=== PATIENT | female | born 1995 | race Caucasian/White ===

== ENCOUNTER 2025-10-13 21:27 | Emergency (ER) | payer OTHER, SELFPAY ==
[2025-10-13 21:29] VITALS: BP 141/102
[2025-10-13 21:55] VITALS: BP 120/97
[2025-10-13 22:01] VITALS: BMI 27.6
--- NOTE | 2025-10-13 22:01 | ED.GENMED ---
History of Present Illness
<Meir Broderick, DO - Last Filed: 10/13/25 23:36>
General
Chief Complaint: Problems
Source: patient and family
Exam Limitations: none
Time Seen by Provider: 10/13/25 21:47
Nursing documentation reviewed up to this point in time: agreed with
History of Present Illness
History of Present Illness:
Note:
CHIEF COMPLAINT(S)
Palpitations and feeling 'full' or bloated.
HISTORY OF PRESENT ILLNESS
The patient is a 30-year-old female who is five months . She presented with complaints of palpitations and feeling 'really full' after having dinner. The patient reported that her heart felt like it was racing, describing a feeling vernon to
'shaking and restless but with air.� She measured her blood pressure at home, noting that both her blood pressure and heart rate were elevated. Despite feeling some shortness of breath, she clarified she is not gasping for air and can speak
comfortably. She denied experiencing any chest pain but mentioned feeling some gastrointestinal fullness and bloating, accompanied by loose stools.
The patient was at rest, lying on the couch, when these symptoms began. She associates the onset with having just finished her evening meal. The patient has a history of in vitro fertilization (IVF) and is being followed by both Dr. Salas group at
[facility] and maternal- medicine due to this .
She reported feeling movements earlier in the day and mentioned some swelling in the legs but did not describe any pain. She had a brief episode of dysuria on Tuesday, which resolved quickly without any recurrence.
CHRONIC MEDICAL CONDITIONS SIGNIFICANTLY AFFECTING CARE
The patient is currently on aspirin prophylactically to reduce the risk of preeclampsia.
Physical Exam
General: no apparent distress, not acutely ill
Neck: supple. no meningeal signs. normal posterior pharynx
Heart: s1/s2 tachycardia, no murmur. equal radial
pulses.
HEENT: Pupils equal round reactive to light, EOMI
Lungs: no acute respiratory distress. clear bilaterally
Abdomen: normal bowel sounds. not tender. no CVAT, gravid uterus
Neuro: alert and oriented. no focal neurological deficits cranial nerves II through XII intact
Skin: no rash
Psychiatric: well kept. interactive and cooperative
Extremities: no edema. no calf tenderness. negative homans. good distal pulses
PLAN
1. Perform a screening test for blood clots, particularly D-dimer, to rule out thromboembolic events.
2. Conduct liver function tests and pancreatic assessments.
3. Administer intravenous fluids.
4. Monitor the patients heart rate and conduct continuous observation, given her concern about potential changes on the electrocardiogram noted during the visit.
DIFFERENTIAL DIAGNOSIS
The Differential Diagnosis includes, in no particular order and is not limited to:
1. Tachycardia related to .
2. Gastroesophageal reflux disease (GERD).
3. Anxiety or stress-related palpitations.
4. Hyperthyroidism.
5. Cardiac arrhythmia.
6. Anemia of .
7. Gestational hypertension.
8. Pre-eclampsia.
9. Pulmonary embolism.
10. Caffeine or dietary-induced palpitations.
CARE-UPDATE
10/13/25 - 23:34
D-Dimer levels are normal for second trimester. Initial troponin negative; plan to repeat test. If repeat troponin is negative and patient remains asymptomatic, discharge is planned. Consulted HOLDEN Macario on-call, confirming no need for
admission; advised follow-up with maternal medicine.
Phy Exam
<Meir Broderick, DO - Last Filed: 10/13/25 23:36>
Physical Exam
Physical Exam:
.
Course
<Meir Broderick, DO - Last Filed: 10/13/25 23:36>
Orders/Labs/Results
Orders:
Orders
10/13/25 21:39
EKG [Electrocardiogram (*1)] Urgent
Reason for Study: Shortness of Breath
EKG- Treatment ONCE
10/13/25 21:57
IV Insert/Care/Rem.- Treatment PRN
Pulse Ox/cont/shift [RESP] Stat
Quantity: 1
10/13/25 21:58
Cardiac Monitoring- Treatment ONCE
Lactated Ringers [Lr] 1,000 ml IV BOLUS
10/13/25 22:13
Complete Blood Count/With Diff Urgent
Comprehensive Metabolic Panel Urgent
D-Dimer Urgent
Magnesium Urgent
TSH Urgent
Comment: ADD ON
Troponin I Urgent
Urinalysis Reflex To Culture Urgent
Date Specimen was Collected: 10/13/25
Time Specimen was Collected: 22:03
10/13/25 23:16
Add On- LAB Urgent
Tests Added?: tsh
10/14/25 00:49
EKG [Electrocardiogram (*1)] Urgent
Reason for Study: Tachycardia
EKG- Treatment ONCE
10/14/25 01:03
Troponin I Urgent
10/14/25 02:50
Potassium Chloride [KCl] 20 meq PO NOW STA
10/14/25 03:00
3 Minute Walk Test [3 Minute Walk Test- Treatment] ONCE
Abnormal Lab Results
10/13/25
22:13
WBC 11.6 H 10^3/uL
(4.8-10.8)
RBC 3.95 L 10^6/uL
(4.20-5.40)
Hgb 11.9 L g/dL
(12.0-16.0)
Hct 33.7 L %
(37.0-47.0)
MPV 10.6 H fL
(7.4-10.4)
Abs Immat Gran (auto) 0.1 H 10^3/uL
(0-0.05)
Absolute Neuts (auto) 9.0 H 10^3/uL
(1.4-6.5)
Immature Gran % 0.6 H %
(0-0.5)
Neutrophils % 77.6 H %
(42.2-75.2)
Lymphocytes % 15.3 L %
(20.5-51.1)
D-Dimer 0.94 H ug/mlFEU
(0.00-0.50)
Sodium 133 L mmol/L
(135-145)
Potassium 3.3 L mmol/L
(3.5-5.1)
BUN 5 L mg/dl
(7-17)
Creatinine 0.4 L mg/dL
(0.6-1.0)
Glucose 124 H mg/dl
(70-99)
10/13/25 22:13
10/13/25 22:13
Vital Signs
Initial and Last Documented VS:
Initial Vital Signs
Temp Pulse Resp BP Pulse Ox
98.3 F 120 18 141/102 99
10/13/25 21:29 10/13/25 21:29 10/13/25 21:29 10/13/25 21:29 10/13/25 21:29
Last Documented Vital Signs
Temp Pulse Resp BP Pulse Ox
98.6 F 129 20 129/89 18
10/14/25 01:00 10/14/25 03:12 10/14/25 03:12 10/14/25 03:12 10/14/25 03:12
<Jing Casey DO - Last Filed: 10/14/25 07:20>
Orders/Labs/Results
Orders:
Orders
10/13/25 21:39
EKG [Electrocardiogram (*1)] Urgent
Reason for Study: Shortness of Breath
EKG- Treatment ONCE
10/13/25 21:57
IV Insert/Care/Rem.- Treatment PRN
Pulse Ox/cont/shift [RESP] Stat
Quantity: 1
10/13/25 21:58
Cardiac Monitoring- Treatment ONCE
Lactated Ringers [Lr] 1,000 ml IV BOLUS
10/13/25 22:13
Complete Blood Count/With Diff Urgent
Comprehensive Metabolic Panel Urgent
D-Dimer Urgent
Magnesium Urgent
TSH Urgent
Comment: ADD ON
Troponin I Urgent
Urinalysis Reflex To Culture Urgent
Date Specimen was Collected: 10/13/25
Time Specimen was Collected: 22:03
10/13/25 23:16
Add On- LAB Urgent
Tests Added?: tsh
10/14/25 00:49
EKG [Electrocardiogram (*1)] Urgent
Reason for Study: Tachycardia
EKG- Treatment ONCE
10/14/25 01:03
Troponin I Urgent
10/14/25 02:50
Potassium Chloride [KCl] 20 meq PO NOW STA
10/14/25 03:00
3 Minute Walk Test [3 Minute Walk Test- Treatment] ONCE
Abnormal Lab Results
10/13/25
22:13
WBC 11.6 H 10^3/uL
(4.8-10.8)
RBC 3.95 L 10^6/uL
(4.20-5.40)
Hgb 11.9 L g/dL
(12.0-16.0)
Hct 33.7 L %
(37.0-47.0)
MPV 10.6 H fL
(7.4-10.4)
Abs Immat Gran (auto) 0.1 H 10^3/uL
(0-0.05)
Absolute Neuts (auto) 9.0 H 10^3/uL
(1.4-6.5)
Immature Gran % 0.6 H %
(0-0.5)
Neutrophils % 77.6 H %
(42.2-75.2)
Lymphocytes % 15.3 L %
(20.5-51.1)
D-Dimer 0.94 H ug/mlFEU
(0.00-0.50)
Sodium 133 L mmol/L
(135-145)
Potassium 3.3 L mmol/L
(3.5-5.1)
BUN 5 L mg/dl
(7-17)
Creatinine 0.4 L mg/dL
(0.6-1.0)
Glucose 124 H mg/dl
(70-99)
10/13/25 22:13
10/13/25 22:13
Vital Signs
Initial and Last Documented VS:
Initial Vital Signs
Temp Pulse Resp BP Pulse Ox
98.3 F 120 18 141/102 99
10/13/25 21:29 10/13/25 21:29 10/13/25 21:29 10/13/25 21:29 10/13/25 21:29
Last Documented Vital Signs
Temp Pulse Resp BP Pulse Ox
98.6 F 129 20 129/89 18
10/14/25 01:00 10/14/25 03:12 10/14/25 03:12 10/14/25 03:12 10/14/25 03:12
Information
Weeks gestation: Weeks: (21)
Location: Location: (known IUP at 21 weeks)
<Meir Broderick, DO - Last Filed: 10/13/25 23:36>
*Pulse Oximetry
SaO2: 99
Oxygen Mode of Delivery: Room air
Patient hypoxic: no
<Jing Casey DO - Last Filed: 10/14/25 07:20>
*Critical Care Note
Total Time (30-74mins, 75-104mins- exclusive of procedures): Not Applicable
<Jing Casey, DO - Last Filed: 10/14/25 07:20>
Update Note
Update Note:
03:00
Monitor continues to show sinus tachycardia 110-120. Otherwise she remains hemodynamically stable. Afebrile.
Repeat troponin remains within normal limits, minimal but negligible uptrend from 0.016-0.024. She continues to deny chest pain nor shortness of breath with lying on stretcher.
TSH is normal.
She does continue with sinus tachycardia and notes continued feeling of intermittent palpitations. At this point unclear as to cause for sinus tachycardia.
Although D-dimer within normal limits when corrected for , it is mildly elevated at 0.94.
Discussed obtaining CT of the chest/PE study to assess for potential PE, this will also assess for potential occult pneumonia.
Lengthy discussion regarding risks, benefits, other options such as discharge to home with prompt follow-up with her [employer].
Will plan for 3-minute walk test, assess for symptomatology with ambulation.
03:10
Patient has ambulated about the ED without shortness of breath nor chest pain, quite chatty while ambulating and without symptomatology.
Monitor continues to show mild sinus tachycardia but no increase in heart rate with ambulation.
Patient elects to hold off on CT which is absolutely reasonable as she overall is asymptomatic.
Will discharge to home with recommendations she follow-up promptly with her [employer] for recheck.
Strict return precautions discussed.
ED Attending Note
<Meir Broderick, DO - Last Filed: 10/13/25 23:36>
-
Portions of this chart may have been created with voice recognition software.� Occasional wrong word or��sound alike� substitutions may have occurred due to the inherent limitations of voice recognition software.
Discharge Plan
Departure
Patient Disposition: Home (Routine Discharge)
Date of Disposition: 10/14/25
Time of Disposition: 03:11
Patient with high blood pressure during this ER visit?: No
Condition: Good
Discharge Problem:
Sinus tachycardia
Instructions: Tachycardia, symptoms
Prescriptions:
No Action
aspirin 81 mg Tablet
81 mg PO DAILY
1 tab PO DAILY
Referrals:
Vikram Mcdaniel CRNP [Family Provider, General]
Interventions
Interventions:
*Risk Screen - Suicide Last Done: 10/13/25 21:29
*General Assessment Last Done: 10/13/25 21:29
*Neglect/Abuse Screening Last Done: 10/13/25 21:29
*ED- Fall Risk Assessment Last Done: 10/13/25 21:52
*ED COVID-19 Vaccine History Last Done: 10/13/25 21:52
*ED Influenza Vaccine History Last Done: 10/13/25 21:52
*Nursing Disposition Last Done: 10/14/25 03:25
ED-Female Genitourinary Assessment Last Done: 10/13/25 22:02
Discharge Date and Time
Discharge Date/Time: 10/14/25 03:26
Print Language: [email or web address]
[2025-10-13] MEDS: LR 1000 IV (22:17)
[2025-10-13 22:18] VITALS: BP 123/86
[2025-10-13 22:27] LABS: Hematocrit 33.7 % (37.0-47.0); Hemoglobin 11.9 g/dL (12.0-16.0); Mean Corp Hgb Conc. 35.3 g/dL (33.0-37.0); Mean Corpuscular Volume 85.3 fL (81.0-99.0); Nucleated Red Blood Cells % 0 %; Platelet Count 181 10^3/uL (130-400); Red Cell Dist. Width 12.8 % (11.5-14.5); Urine Character Clear (Clear)
[2025-10-13 22:39] LABS: D-Dimer 0.94 ug/mlFEU (0.00-0.50)
[2025-10-13 22:45] LABS: ALT (SGPT) 19 U/L (0-35); AST (SGOT) 27 U/L (14-36); Albumin 3.7 g/dl (3.5-5.0); Alkaline Phosphatase 65 U/L (38-126); Blood Urea Nitrogen 5 mg/dl (7-17); Calcium 9.8 mg/dl (8.4-10.2); Carbon Dioxide 24 mmol/L (22-30); Chloride 104 mmol/L (98-107); Estimated Creatinine Clearance > 125 ml/min; Glucose 124 mg/dl (70-99); Magnesium 1.6 mg/dl (1.6-2.3); Potassium 3.3 mmol/L (3.5-5.1); Sodium 133 mmol/L (135-145); Total Protein 6.5 g/dl (6.3-8.2); eGFR > 60.00
[2025-10-13 22:50] LABS: Troponin I 0.016 ng/ml
[2025-10-13 23:00] VITALS: BP 118/88
[2025-10-14] VITALS: BP 108/77
[2025-10-14 00:28] LABS: TSH 2.00 uIU/ml (0.47-4.68)
[2025-10-14 01:00] VITALS: BP 112/86
[2025-10-14 02:00] VITALS: BP 136/84
[2025-10-14 02:28] LABS: Troponin I 0.024 ng/ml
[2025-10-14 03:00] VITALS: BP 129/89
[2025-10-14] MEDS: KCL 20 MEQ PO (03:10)
[2025-10-14 03:12] VITALS: BP 129/89
== END 2025-10-14 03:26 | disposition home or self-care (01) ==
LOC: EMR 21:27
PROVIDERS: Emergency Medicine; EMERGENCY PHYSICIAN Emergency Medicine; FAMILY PHYSICIAN Nurse Practitioner Gerontology
DX: O99.891 Other specified diseases and conditions complicating pregnancy (principal); R00.0 Tachycardia, unspecified; Z3A.21 21 weeks gestation of pregnancy; Z79.82 Long term (current) use of aspirin
CPT/HCPCS: 99284; 96360; 80053; 81003; 83735; 84443; 84484; 85025; 85379; 93005